=== PATIENT | female | born 1955 | race Two or more races ===

== ENCOUNTER 2024-07-09 11:43 | Emergency (ER) | payer OTHER ==
[~2024-07-09] VITALS: Ht 165.1 cm; Wt 102.1 kg
[2024-07-09] MEDS ORDERED: COZAAR25 MG (11:58)
[2024-07-09] MEDS ORDERED: NORFLEX100MG PO (12:14)
[2024-07-09] MEDS ORDERED: ORPHENADRINE CITRATE 30 MG/ML AMPUL IM ONE (12:15)
[2024-07-09] MEDS ORDERED: KETOROLAC TROMETHAMINE 60 MG VIAL IM ONE ×2 (12:15→12:17)
[2024-07-09] MEDS ORDERED: ORPHENADRINE CITRATE 30 MG/ML AMPUL ONE (12:16)
== END 2024-07-09 12:51 | disposition home or self-care (01) ==
LOC: ER 11:44
DX: M62.830 Muscle spasm of back (principal)
CPT/HCPCS: 96372; 99282; J1885; J2360